=== PATIENT | male | born 1980 | race Caucasian/White ===

== ENCOUNTER 2018-03-06 21:54 | Emergency (ER) | payer SELFPAY ==
[2018-03-06 22:24] VITALS: BP 151/80; PULSE 86; TEMP 98.4; BMI 30.2
--- NOTE | 2018-03-06 22:40 | PDOC ---
History of Present Illness <Jacob Willett - Last Filed: 03/07/18 00:55> - General History Source: Patient Exam Limitations: No Limitations - History of Present Illness Initial Comments: 03/07/18 01:28 The patient is a 37 year old male, with no significant past medical history who presents to the emergency department with cough for the past two weeks. Patient is accompanied by who reports patient has been experiencing productive cough, congestion, clear rhinorrhea for the past two weeks. Patient has tried various OTC medications with no relief. Patient is unable to sleep secondary to cough. Patient notes exertional dyspnea and chest tightness secondary to cough. Due to persistent symptoms, patient presents to the ED for further evaluation. Patient denies any leg swelling, leg edema, hemoptysis, calf tenderness. Patient denies chest pain, palpitations, diaphoresis, headache or dizziness. Patient denies fever, chills, abdominal pain, nausea, vomit, diarrhea or constipation. Patient denies dysuria, frequency, urgency or hematuria. Patient denies sick contacts or recent travel. Allergies: NKA Past surgical history: None Social history:denies etoh, smoking, recreational drug use PCP: None <Radha Kaufman - Last Filed: 03/07/18 01:29> - General Chief Complaint: Cold Symptoms Stated Complaint: COUGH Time Seen by Provider: 03/06/18 22:36 Past History - Past Medical History COPD: No - Suicide/Smoking/Psychosocial Hx Smoking History: Never smoked <Jacob Willett - Last Filed: 03/07/18 00:55> <Radha Kaufman - Last Filed: 03/07/18 01:29> - Past Medical History Allergies/Adverse Reactions: Allergies Allergy/AdvReac Type Severity Reaction Status Date / Time No Known Allergies Allergy Verified 03/06/18 22:08 Home Medications: Ambulatory Orders Albuterol Sulfate Inhaler - [Ventolin HFA Inhaler -] 1 - 2 inh PO Q4H PRN #1 inhaler 03/07/18 predniSONE [Deltasone -] 40 mg PO DAILY #8 tablet 03/07/18 Review of Systems - Review of Systems Able to Perform ROS?: Yes Comments:: 03/07/18 01:28 CONSTITUTIONAL: No reported: Fever, Chills, Diaphoresis, Generalized Weakness, Malaise, Loss of Appetite HEENT: No reported: Rhinorrhea, Nasal Congestion, Throat Pain, Throat Swelling, Difficulty Swallowing, Mouth Swelling, Ear Pain, Eye Pain, Visual Changes CARDIOVASCULAR: No reported: Chest Pain, Syncope, Palpitations, Irregular Heart Rate, Lightheadedness, Peripheral Edema RESPIRATORY: +cough, SOB, wheezing, SOB with exertion. No reported: Orthopnea, Stridor, Hemoptysis GASTROINTESTINAL: No reported: Abdominal pain, Abdominal Distension, Nausea, Vomiting, Diarrhea, Constipation, Melena, Hematochezia GENITOURINARY: No reported: Dysuria, Frequency, Urgency, Hesitancy, Flank Pain, Genital Pain MUSCULOSKELETAL: No reported: Myalgia, Arthralgia, Joint Swelling, Back pain, Neck Pain SKIN: No reported: Rash, Itching, Pallor HEMATOLOGIC/IMMUNOLOGIC: No reported: Easy Bleeding, Easy Bruising, Lymphadenopathy, Frequent infections ENDOCRINE: No reported: Unexplained Weight Gain, Unexplained Weight Loss, Heat Intolerance , Cold Intolerance NEUROLOGIC: No reported: Headache, Focal Weakness, Paresthesias, Vertigo, Lightheadedness, Unsteady Gait, Seizure, Mental Status Changes, Incontinence PSYCHIATRIC: No reported: Anxiety, Depression <Radha Kaufman - Last Filed: 03/07/18 01:29> *Physical Exam - Vital Signs Last Vital Signs Temp Pulse Resp BP Pulse Ox 98.4 F 86 20 151/80 98 03/06/18 22:09 03/06/18 22:09 03/06/18 22:09 03/06/18 22:09 03/06/18 22:09 <Jacob Willett - Last Filed: 03/07/18 00:55> - Vital Signs Last Vital Signs Temp Pulse Resp BP Pulse Ox 98.4 F 86 20 151/80 98 03/06/18 22:09 03/06/18 22:09 03/06/18 22:09 03/06/18 22:09 03/06/18 22:09 - Physical Exam Comments: 03/07/18 01:29 GENERAL: The patient is awake, alert, and fully oriented, Nontoxic - in no acute distress. HEAD: Normocephalic, atraumatic. EYES: extraocular movements intact, sclera anicteric, conjunctiva clear. ENT: Normal voice, Moist mucous membranes. NECK: Normal range of motion, No JVD LUNGS: +bilateral wheezing. Breath sounds equal. No rhonchi, no rales. no respiraotory distress, speaking complete sentences, no accessory muscle usage HEART: Regular rate and rhythm, normal S1 and S2 without murmur, rub or gallop. ABDOMEN: Soft, nontender, normoactive bowel sounds. No guarding, no rebound. No masses. No CVA tenderness EXTREMITIES: Normal range of motion, no edema. No clubbing or cyanosis. No cords , erythema, or tenderness. NEUROLOGICAL: No facial asymmetry, Normal speech, normal gait. PSYCH: Normal mood, normal affect. SKIN: Warm, Dry, normal turgor. <Radha Kaufman - Last Filed: 03/07/18 01:29> ED Treatment Course - Medications Given in the ED: ED Medications Discontinued Medications Generic Name Dose Route Start Last Admin Trade Name Freq PRN Reason Stop Dose Admin Albuterol/Ipratropium 1 amp 03/06/18 22:48 03/06/18 23:14 Duoneb - NEB 03/06/18 22:49 1 amp ONCE ONE Administration Prednisone 60 mg 03/07/18 00:55 03/07/18 00:59 Deltasone - PO 03/07/18 00:56 60 mg ONCE ONE Administration <Radha Kaufman - Last Filed: 03/07/18 01:29> Medical Decision Making - Medical Decision Making 03/06/18 22:51 37y M presents with 2 weeks of nonprodcutive cough, congestion, sneezing, without any fever chills, chest pain, hymoptysis, leg swelling. 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 On exam the patient is no acute distress, his vital signs are normal, on laboratory exam he does have moderate wheezing diffusely, he has good movement. We'll give the patient a DuoNeb we'll reassess if the patient required multiple nebs will give steroids. Suspect viral illness /bronchitis Will obtain chest x-ray to rule out acute pulmonary disease. A portion of this note was documented by scribe services under my direction. I have reviewed the details of the note, within reason, and agree with the documentation with the following case summary and management plan written by me 03/07/18 00:55 Patient's chest x-ray is negative for any infiltrates. The patient's pulmonary exam so reveals mild wheezing we'll give the patient prednisone and Rx for albuterol. We'll have the patient follow-up with his primary care doctor Return precautions at discussed I discussed the physical exam findings, ancillary test results and final diagnoses with the patient. I answered all of the patient's questions. The patient was satisfied with the care received and felt comfortable with the discharge plan and treatment plan. The patient will call their primary care physician within 24 hours to arrange follow-up and will return to the Emergency Department with any new, persistent or worsening symptoms. <Jacob Willett - Last Filed: 03/07/18 00:55> *DC/Admit/Observation/Transfer - Discharge Dispostion Decision to Admit order: No <Jacob Willett - Last Filed: 03/07/18 00:55> - Attestations Scribe Attestion: 03/07/18 01:29 Documentation prepared by Radha Kaufman, acting as medical billing coder for Jacob Willett MD <Radha Kaufman - Last Filed: 03/07/18 01:29> Diagnosis at time of Disposition: Bronchospasm - Discharge Dispostion Disposition: HOME Condition at time of disposition: Improved - Prescriptions Prescriptions: Albuterol Sulfate Inhaler - [Ventolin HFA Inhaler -] 1 - 2 inh PO Q4H PRN #1 inhaler PRN Reason: Shortness Of Breath predniSONE [Deltasone -] 40 mg PO DAILY #8 tablet - Referrals Referrals: [facility] [place] [facility] [place] [Provider Group] - Patient Instructions Printed Discharge Instructions: DI for Viral Upper Respiratory Infection -- Adult Additional Instructions: Regrese al departamento de emergencia de inmediato con CUALQUIER sntoma nuevo, persistente o que empeore, veronique dificultad para respirar, dolor en el pecho u otras preocupaciones. [place] el albuterol segn sea necesario para la tos. [place] la prednisona por 4 nolasco. DEBE llamar y hacer un seguimiento con shepard mdico maana para claudia mayor evaluaci n de arturo sntomas. Los resultados fueron discutidos con usted. Asegrese de que shepard mdico revise los resultados de shepard evaluacin de emergencia. Si tuvo alguna radiografa varinder shepard visita, fue tiffanie de manera preliminar por m mismo, un radilogo la revisar y si hay algn hallazgo adicional, lo llamaremos. ======= Return to the emergency department immediately with ANY new, persistent or worsening symptoms including difficulty breathing, pain in your chest or other concerns. Take the albuterol as needed for the cough. Take the prednisone for 4 days. You MUST call and follow up with your doctor tomorrow for further evaluation of your symptoms. Results were discussed with you. Please make sure your doctor reviews the results of your emergency evaluation. If you had any xrays during your visit, it was read preliminarily by myself, a Radiologist will review it and if there are any additional findings we will call you. Print Language: SLOVENIAN
[2018-03-06] MEDS ORDERED: ALBUTEROL SO4 2.5/IPRATROPIUM 0.5 INH SOL 3 ML VIAL.NEB. NEB ONE (22:48)
[2018-03-07] MEDS ORDERED: predniSONE 20 MG TABLET (UD) PO ONE (00:55)
[2018-03-07] MEDS ORDERED: predniSONE 20 MG TABLET (UD) ONE (00:57)
== END 2018-03-07 01:01 | disposition home or self-care (01) ==
LOC: JER 21:54
PROC: 3E0F7GC Introduction of Other Therapeutic Substance into Respiratory Tract, Via Natural or Artificial Opening (ICD-10-PCS; principal; 2018-03-06)
DX: J98.01 Acute bronchospasm (principal)
CPT/HCPCS: 71046-TC-FY; 99282-25; J7620